=== PATIENT | female | born 1960 | race Caucasian/White ===

== ENCOUNTER → 2016-05-20 | Outpatient (CLI) | payer OTHER ==
--- NOTE | 2016-05-20 11:42 | DX ---
Right Foot, 3 Views History: Right foot pain, M79.671, inversion injury one week ago. Findings: Oblique intra-articular fracture of the base of the right fifth metatarsal with a 12 mm fra cture fragment demonstrating no significant displacement. Plantar calcaneal spur. No fracture of the toes or first through fourth metatarsals. No definite cuboid fracture. Impression: Oblique intra-articular nondisplaced fracture of the right fifth metatarsal base.
== END ==
LOC: BRMIMAGING 10:17
PROVIDERS: ATTEND Physician Assistant
DX: S92.354A Nondisplaced fracture of fifth metatarsal bone, right foot, initial encounter for closed fracture (principal)
CPT/HCPCS: 73630-PO

== ENCOUNTER → 2016-06-20 | Outpatient (CLI) | payer OTHER | LOC: BRMIMAGING 14:16 | PROVIDERS: ATTEND Physician Assistant | DX: S92.351D Displaced fracture of fifth metatarsal bone, right foot, subsequent encounter for fracture with routine healing (principal) | CPT/HCPCS: 73630-PO ==